=== PATIENT | female | born 1960 | race Hispanic/Latino ===

== ENCOUNTER 2020-07-17 12:59 | Emergency (ER) | payer OTHER ==
[~2020-07-17] VITALS: Ht 157.5 cm; Wt 60.0 kg
[2020-07-17] MEDS ORDERED: IMURAN50 MG PO (13:15)
[2020-07-17] MEDS ORDERED: CALTRATE 600 W1 EACH (13:15)
[2020-07-17] MEDS ORDERED: METOPROLOL SUCC50 MG PO (13:15)
[2020-07-17] MEDS ORDERED: PREDNISONE10 MG PO (13:15)
[2020-07-17] MEDS ORDERED: XARELTO20 MG PO (13:15)
[2020-07-17] MEDS ORDERED: HYDROCODONE/APAP 5MG-325MG TAB ONE (13:29)
[2020-07-17] MEDS ORDERED: ONDANSETRON HCL 4 MG ORAL DISINTEGRATING TAB ONE (13:29)
[2020-07-17] MEDS ORDERED: ONDANSETRON HCL 4 MG ORAL DISINTEGRATING TAB PO ONE (13:30)
[2020-07-17] MEDS ORDERED: HYDROCODONE/APAP 5MG-325MG TAB PO ONE (13:30)
[2020-07-17 14:35] VITALS: BP 151/113
== END 2020-07-17 14:38 | disposition home or self-care (01) ==
LOC: FSED 13:25
DX: S42.255A Nondisplaced fracture of greater tuberosity of left humerus, initial encounter for closed fracture (principal); W01.0XXA Fall on same level from slipping, tripping and stumbling without subsequent striking against object, initial encounter; Y99.0 Civilian activity done for income or pay; I10 Essential (primary) hypertension; I48.91 Unspecified atrial fibrillation; K76.9 Liver disease, unspecified; M06.9 Rheumatoid arthritis, unspecified
CPT/HCPCS: 71045; 73060; 99283; Q0162